=== PATIENT | female | born 1940 | race Caucasian/White ===

== ENCOUNTER 2017-03-18 11:40 | Emergency (ER) | payer MEDICARE ==
[2017-03-18] MEDS ORDERED: Labetalol 5 mg/mL 20 mL Inj IVPUSH ONE (12:00)
--- NOTE | 2017-03-18 12:00 | ED.REPORT ---
HPI-Stroke / CVA Mar 18, 2017 ED Provider: Dash Seo MD Pt is a 76 year old female with a history of Vallejo's Palsy who presents to the ED complaining of severe aching headache onset today. She c/o associated mild neck pain (resolved), blurred vision bilaterally and vision changes. She denies fever, chest pain, SOB, abdominal pain, numbness, blurred vision, and paresthesia. The pt presented to and she was referred to the ED for further evaluation. As UC, the pt's blood pressure was elevated to 210/99. The pt reports that she initially had blurred vision in her right eye with "wavy floaters" onset 10:00 today. She states that her blurred vision resolved in 10 minutes, but returned for a second time bilaterally. Her vision symptoms have resolved in entirely upon her arrival to the ED. Pt rates her headache as a 8/ 10. Nursing Notes Stated Complaint: POSS STROKE Chief Complaint: Headache Nursing Notes Reviewed: Yes Allergies: Coded Allergies: codeine (Verified Allergy, Mild, 03/18/17) No Known Allergies (Verified Allergy, Unknown, 05/01/10) General Time Seen by Provider: 11:46 Chief Complaint Other (Headache) Eye right, Eye left Hx Obtained From: Patient Arrived By: Walk-in Time last known well 09:00 on 03/18/17 Sudden in Onset?: No Symptom Duration: Since onset Progression Since Onset: Resolved Location: : Head Quality: Aching Severity: Current: Moderate Severity: Maximum: Moderate Recent Healthcare: No recent doctor visit, No recent hospitalization Similar Sx Previous: No Past Medical History 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 Physical Exam Initial Vital Signs Vital Signs (First) Date Time Temp Pulse Resp B/P Pulse Ox O2 Delivery O2 Flow Rate FiO2 03/18/17 12:01 36.3 67 18 202/76 99 Room Air Initial VS: Reviewed Abdomen / GI: Soft, Non-tender Extremities: Vascular intact, Neuro intact Skin: Warm, Dry, No cyanosis Psychiatric: Mood/affect normal, Behavior normal General/Constitutional: Awake, Alert Head / Eyes: Atraumatic, Normocephalic Neck: Atraumatic, Full range of motion Respiratory / Chest: Atraumatic, Breath sounds NL, Breath sounds = bilat Cardiovascular: Heart rate NL, Regular rhythm, Heart sounds NL Neurologic: Oriented X3, Speech NL, CN II - XII intact Interpretation & Diagnostics Lab Results Interpretation Result Diagram: 03/18/17 1300 03/18/17 1300 Test 03/18/17 13:00 03/18/17 13:08 White Blood Count 10.5th/mm3 (3.8-10.1) Red Blood Count 4.63mil/mm3 (3.90-5.20) Hemoglobin 13.7g/dL (12.0-15.6) Hematocrit 41.6% (35.0-46.0) Mean Corpuscular Volume 89.8fL (81-100) Mean Corpuscular Hemoglobin 29.6pg (27.0-35.0) Mean Corpuscular Hemoglobin Concent 32.9% (32.0-37.0) Red Cell Distribution Width 14.0% (12.3-15.4) Platelet Count 239bil/L (150-400) Neutrophils (%) (Auto) 58.2% (40-74) Lymphocytes (%) (Auto) 29.7% (14-46) Monocytes (%) (Auto) 10.3% (4-12) Eosinophils (%) (Auto) 0.9% (0-5) Basophils (%) (Auto) 0.7% (0-3) Prothrombin Time 10.0sec (8.1-12.5) Prothromb Time International Ratio 0.94ratio Sodium Level 139mEq/L (134-144) Potassium Level 4.3mEq/L (3.5-5.2) Chloride Level 100mEq/L (97-108) Carbon Dioxide Level 25mmol/L (18-29) Blood Urea Nitrogen 13mg/dL (8-27) Creatinine 0.56mg/dL (0.57-1.00) Estimat Glomerular Filtration Rate 152mL/min (>59) Glucose Level 98mg/dL (60-99) Calcium Level 9.7mg/dL (8.5-10.1) Total Bilirubin 0.2mg/dL (0.0-1.2) Aspartate Amino Transf (AST/SGOT) 22U/L (0-50) Alanine Aminotransferase (ALT/SGPT) 26U/L (0-32) Alkaline Phosphatase 70U/L (25-165) Troponin T < 0.010ug/L (0.0-0.011) Total Protein 7.7g/dL (6.4-8.4) Albumin 4.3g/dL (3.4-5.0) Urine Color Straw (YELLOW) Urine Appearance Hazy (CLEAR,HAZY) Urine pH 6.5 (5.0-8.0) Urine Specific [place] 1.005 (1.003-1.035) Urine Protein Negativemg/dL (NEG,TRACE) Urine Glucose (UA) Negativemg/dL (NEGATIVE) Urine Ketones Negativemg/dL (NEGATIVE) Urine Occult Blood Trace (NEGATIVE) Urine Nitrite Negative (NEGATIVE) Urine Bilirubin Negative (NEGATIVE) Urine Urobilinogen Normalmg/dL (NORMAL) Urine Leukocyte Esterase Negative (NEGATIVE) Urine RBC 0-2/hpf (0-2) Urine WBC 0-5/hpf (0-5) Urine Epithelial Cells Occasional/hpf (NONE-MOD) Urine Crystals None seen (NONE SEEN) Urine Bacteria Few/hpf (NONE-FEW) Urine Hyaline Casts None/lpf (NONE) Urine Granular Casts None seen (NONE SEEN) Urine Waxy Casts None seen (NONE SEEN) Urine Red Blood Cell Casts None seen (NONE SEEN) Urine White Blood Cell Casts None seen (NONE SEEN) Urine Mucus None seen (None Seen) Urine Trichomonas None seen (NONE SEEN) Urine Yeast None (NONE SEEN) Urinalysis Comment None Urine Culture Reflexed Not indicated ECG Interpretation ECG Interpretation: Sinus rhythm with a rate of 60 T wave inversion in 3 AVR and AVF, v1-v3 No other ST changes No previous for comparision Time: 12:18 Interpreted by: ED physician CT Head Interpretation IMPRESSION: No acute intracranial disease process. Dictated by: Ange Barboza MD, PhD on 03/18/2017 at 13:31 Study: Head CT no contrast Interpretation / Wet Read by: Interpret - Radiologist Re-Eval/Medical Decision Med Decision/Clinical Course 76-year-old female presenting with 2 episodes of blurred vision right eye with floaters earlier today. Resolved prior to arrival. She was hypertensive on arrival 200 systolic. Improved to 160s systolic with IV labetalol. Her headache resolved. Likely with vitreous detachment and hypertensive urgency. I discussed with the patient she declined hospitalization. She has no neurological deficits at this time though I cannot rule out TIA. Again she declined admission and understands the risk of stroke and . She still prefers to go home. She will follow up with ophthalmology tomorrow. I discussed with them and they arrange an appointment for her in the morning. Return precautions given. Source of Hx: Old records Re-Evaluation/Progress #1: Time of Eval: 12:53 )( Re-Eval Neurologic Exam: Alert Re-Evaluation/Progress Note: Pt rechecked. Pt is asymptomatic outside of her headache. Examined pt further. All questions addressed. Re-Evaluation/Progress #2: Time of Eval: 14:45 Re-Evaluation/Progress Note: Pt rechecked. Informed pt of consult with Dr. Mccormick. Pt reports that her headache has improved and she would like to go home. Informed pt of plan for discharge. Pt understands and agrees with plan for discharge. F/U instructions and RTER warnings given. All questions addressed. Consultation : Referral / Consult Name: FLASH MCCORMICK MD Consulted With: [facility] Aide Call Returned at: 14:42 Orthotics Prosthetics Assistant: Will see patient, Agrees with eval, Agrees with plan Note: Discussed pt's case. He would like her to follow up with him later today or tomorrow. Counseled Regarding: Diagnosis, Lab results, Need for follow-up, When/why to return to ED Patient Discharge & Departure Impression: Primary Impression: Vitreous detachment Laterality: unspecified laterality Qualified Code: H43.819 - Vitreous degeneration, unspecified eye Additional Impressions: Headache Headache type: unspecified Headache chronicity pattern: unspecified pattern Intractability: intractable Qualified Code: R51 - Headache Hypertensive urgency Disposition: Home Discharge Condition All VS Reviewed: Yes Condition: Stable Patient Instructions: Acute Headache (ED), Hypertension in the Older Adult (ED) Additional Instructions: Thank you for trusting us with your care today. Your CT scan is reassuring. I suspect that you had a vitreous detachment. Follow up with Dr. Lund ([phone]) at 8:20AM tomorrow (03/19/17) at his office on [facility]. Your headache may be related to your high blood pressure today. Return to the Emergency Department for any new or concerning symptoms. Referrals: Willem Ramirez MD (PCP) Dr. Camden Lund Scribindy Attestation Portions of this note were transcribed by Melvina Ruiz. I, Dr. Seo personally performed the history, physical exam and medical decision-making; I reviewed and confirmed the accuracy of the information in the transcribed note. Signed by: Leeanna Huang, 03/18/17. copies to: Willem Ramirez MD; Dash Wells MD Mar 18, 2017 11:59 Melvina Marinelli Mar 18, 2017 12:23
[2017-03-18 12:01] VITALS: BP 202/76; PULSE 67; RESP 18; O2SAT 99
[2017-03-18 13:06] VITALS: BP 190/60
[2017-03-18 13:11] LABS: BASOPHILS % (AUTO) 0.7 % (0-3); EOSINOPHILS % (AUTO) 0.9 % (0-5); MONOCYTES % (AUTO) 10.3 % (4-12); Mean Corpuscular Hemoglobin 29.6 pg (27.0-35.0); Mean Corpuscular Volume 89.8 fL (81-100); NEUTROPHILS % (AUTO) 58.2 % (40-74); Platelet Count 239 bil/L (150-400)
[2017-03-18 13:20] VITALS: BP 197/80; PULSE 69; RESP 21; O2SAT 99
[2017-03-18 13:27] LABS: INR 0.94 ratio
[2017-03-18 13:37] VITALS: BP 187/77; PULSE 58
--- NOTE | 2017-03-18 13:39 | DRSVH ---
PROCEDURE: CT BRAIN WITHOUT CONTRAST ([id number]) INDICATIONS: blurry vision resolved. headache TECHNIQUE: Noncontrast 4.5 mm thick angled axial sections acquired from the foramen magnum to the vertex, with c oronal reformats. COMPARISON: None. FINDINGS: Image quality: Excellent. CSF spaces: Basal cisterns are patent. No extra-axial fluid collections. The ventricles are symmet ronnell in size and shape. Brain: No intracranial bleeds or masses. There is cerebral volume loss for age, with resultant vent ricular and sulcal prominence. There are periventricular and deep white matter chronic small vessel ischemic changes. There is intracranial internal carotid artery atherosclerosis. Skull and face: Calvarium and visualized facial bones appear intact anterior limb left internal caps ule. Heart noted. Prominent perivascular space versus old lacunar infarct in the left putamen noted. without suspicious lesions. Sinuses: Visualized sinuses and mastoids are clear. IMPRESSION: No acute intracranial disease process. Dictated by: Ange Barboza MD, PhD on 03/18/2017 at 13:31 Approved by: Ange Barboza MD, PhD on 03/18/2017 at 13:38
[2017-03-18 13:55] LABS: APPEARANCE,URINE HAZY (CLEAR,HAZY); COLOR,URINE STRAW (YELLOW); OCCULT BLOOD,URINE TRACE (NEGATIVE); PH,URINE 6.5 (5.0-8.0); UROBILINOGEN,URINE NORMAL (NORMAL)
[2017-03-18 14:04] VITALS: BP 182/71; PULSE 52
[2017-03-18 14:06] LABS: TROPONIN T < 0.010 ug/L (0.0-0.011)
[2017-03-18 15:39] VITALS: BP 143/60; PULSE 72; RESP 14; O2SAT 99
== END 2017-03-18 15:41 | disposition home or self-care (01) ==
LOC: SED 11:40
DX: H43.813 Vitreous degeneration, bilateral (principal); I16.0 Hypertensive urgency; R51 Headache; E78.5 Hyperlipidemia, unspecified; G51.0 Bell's palsy; Z88.5 Allergy status to narcotic agent
CPT/HCPCS: 36415; 70450; 80053; 81000; 84484; 85025; 85610; 93005; 96374; 99285; G0463